=== PATIENT | female | born 1965 | race Caucasian/White ===

== ENCOUNTER → 2018-06-06 10:34 | Outpatient (CLI) | payer OTHER, SELFPAY ==
--- NOTE | 2018-06-06 | IMM_PTH ---
PATIENT: MANISHA BORJA LOC: [facility] U#:[id number] AGE/SX: 60/F ROOM: RE06/06/[address]: Dr. Merritt Rothman MD : 1965 BED: DIS: SPEC #: [id number] RECD: 06/08/18 14:49 STATUS: CARLOS REAna Maria #: [id number] NILES: 06/06/18 00:[address]: Merritt Rothman DEPT: IMMUNOHISTOCHEMISTRY RECD BY: Alexandrea Pierson ENTERED: 06/08/18 14:50 SP TYPE: IMMUNO OTHR DR: Dr. Grzegorz Moya MD Tissues: Mouth, NOS Procedures: p16 (initial) KI-67 (add) PHYSICIAN & INSTITUTION [place] [id number] SPECIMEN INFORMATION: Tissue Source: Oral floor of mouth lesion Clinical Info: Oral floor of mouth lesion Specimen Number: [id number] CPT code: 75223, 75652 METHODOLOGY: Deparaffinized sections of prefer/formalin-fixed tissue or PAP/DQ stained slides are incubated with monoclonal/polyclonal antibodies/oligonucleotide probes. Localization is made via biotin free immunoperoxidase method. Appropriate controls are performed and reacted as expected. Results on target cell population are indicated in the following table: RESULTS: ANTIBODY / CLONE RESULT P16 (E6H4) negative Ki-67 (30-9) positive, moderate These tests were developed and their performance characteristics determined by [facility]. They may not have been cleared or approved by the [place] Food and Drug Administration. The FDA has determined that such clearance or approval is not necessary. 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 AM:jonathan 06/12/18 Case has been reviewed in consultation with Dr. Olson who concurs with the above diagnosis. IDC:[email or web address]
--- NOTE | 2018-06-06 09:55 | LES_PTH ---
PATIENT: MANISHA BORJA LOC: [facility] U#:[id number] AGE/SX: 60/F ROOM: RE06/06/[address]: Dr. Merritt Rothman MD : 1965 BED: DIS: SPEC #: [id number] RECD: 06/06/18 15:53 STATUS: CARLOS LIMAAna Maria #: [id number] NILES: 06/06/18 09:[address]: Merritt Rothman DEPT: SURGICAL PATHOLOGY RECD BY: Mervin Gomez ENTERED: 06/07/18 13:40 SP TYPE: Lesion OTHR DR: Dr. Grzegorz Moya MD Tissues: Floor of mouth, NOS Procedures: Surgery Specimen Level IV HEADER OPERATION: Not noted PRE-OP DIAGNOSIS: Oral floor of mouth lesion TISSUE SUBMITTED: Oral floor of mouth lesion, permanent pathology MICROSCOPIC DIAGNOSIS Floor of mouth lesion, biopsy: Moderate to severe squamous atypia. AM:jonathan 06/08/18 COMMENT Results from immunohistochemistry ([id number]) for surrogate HPV marker (p16) will be reported separately. Case has been reviewed in consultation with Dr. Olson who concurs with the above diagnosis. IDC:[email or web address] MICROSCOPIC DESCRIPTION Slides are reviewed. GROSS DESCRIPTION Received in fixative is one container labeled with the patient's name and designated oral lesion floor of mouth. The specimen consists of multiple irregular fragments of solano-brown soft tissue that in aggregate measure 1 x 0.3 x 0.2 cm. The specimen is totally submitted in one cassette. / NOEMI:jonathan 06/07/18 TC:0 CPT: 28250
== END ==
PROVIDERS: Family Provider Family Medicine; PCP Family Medicine; Visit Provider Otolaryngology
DX: K13.70 Unspecified lesions of oral mucosa (principal)
CPT/HCPCS: 88305; 88307; 88341; 88342